=== PATIENT | female | born 1950 | race African-American/Black ===

== ENCOUNTER 2021-07-18 10:34 | Outpatient (CLI) | payer MEDICARE | END 2021-07-18 10:35 | disposition home or self-care (01) | LOC: CSHCP 10:34 | PROVIDERS: ATTEND Internal Medicine Critical Care Medicine | DX: J44.9 Chronic obstructive pulmonary disease, unspecified (principal) | CPT/HCPCS: 94150; 94726; 94729; 94760 ==

== ENCOUNTER 2022-06-01 11:05 | Outpatient (CLI) | payer MEDICARE | END 2022-06-01 11:06 | disposition home or self-care (01) | LOC: CSHLAB 11:05 | PROVIDERS: ATTEND Orthopaedic Surgery | DX: Z01.818 Encounter for other preprocedural examination (principal); M54.50 Low back pain, unspecified; M54.16 Radiculopathy, lumbar region; T84.498S Other mechanical complication of other internal orthopedic devices, implants and grafts, sequela | CPT/HCPCS: 80048; 85027; 85610; 85730; 86850; 86900; 86901; 93005; 93010 ==

== ENCOUNTER 2022-06-06 11:00 | Outpatient (CLI) | payer MEDICARE | END 2022-06-06 11:01 | disposition home or self-care (01) | LOC: CSHRAD 11:00 | PROVIDERS: ATTEND Orthopaedic Surgery | DX: M54.50 Low back pain, unspecified (principal); Z98.890 Other specified postprocedural states; M47.816 Spondylosis without myelopathy or radiculopathy, lumbar region | CPT/HCPCS: 72100 ==

== ENCOUNTER 2022-11-10 08:55 | Emergency (ER) | payer MEDICARE ==
[2022-11-10 10:23] LABS: ALT (SGPT) 22 U/L (8-55); AST (SGOT) 21 U/L (5-34); Albumin 3.8 g/dL (3.4-4.8); Alkaline Phosphatase 137 U/L (40-110); Anion Gap 16 mmol/L (10-20); BUN (Urea Nitrogen) 19 mg/dL (9.8-20.1); Bilirubin, Total 0.4 mg/dL (0.2-1.2); Calc. Creatinine Clearance 0 mL/min (70-130); Calcium 9.7 mg/dL (7.8-10.44); Carbon Dioxide 21 mmol/L (23-31); Chloride 106 mmol/L (98-107); Estimated GFR 47; Globulin 3.4 g/dL (2.4-3.5); Glucose 117 mg/dL (83-110); Potassium 4.2 mmol/L (3.5-5.1); Protein, Total 7.2 g/dL (5.8-8.1); Sodium 139 mmol/L (136-145)
[2022-11-10 10:25] LABS: #Eosinphils 0.2 10x3/uL (0.0-0.5); #Monocytes 0.8 10x3/uL (0.0-1.1); #Neutrophils 3.3 10x3/uL (1.5-8.4); %Basophils 0.5 % (0.0-2.0); %Eosinophils 2.6 % (0.0-6.0); %Lymphocytes 34.2 % (18.0-47.0); %Monocytes 12.2 % (0.0-10.0); %Neutrophils 50.2 % (40.0-75.0); Hemoglobin 11.3 g/dL (12.0-15.5); Mean Corpuscular HGB CONC 30.8 g/dL (32.0-36.0); Mean Corpuscular Volume 71.4 fl (81.6-98.3); Mean Platelet Volume 10.4 fl (7.4-10.4); Platelet Count 200 10x3/uL (150-450); RBC Distribution Width 17.4 % (11.5-14.5); Red Blood Cell (RBC) Count 5.14 10x6/uL (3.90-5.03); White Blood Cell (WBC) Count 6.6 10x3/uL (3.5-10.5)
== END 2022-11-10 12:36 | disposition home or self-care (01) ==
LOC: CSHERS 08:55
DX: R53.81 Other malaise (principal); E78.5 Hyperlipidemia, unspecified; E11.9 Type 2 diabetes mellitus without complications; I10 Essential (primary) hypertension; Z87.891 Personal history of nicotine dependence; Z79.899 Other long term (current) drug therapy
CPT/HCPCS: 36415; 36416; 71045; 80053; 83880; 84484; 85025; 93005; 96360

== ENCOUNTER 2023-04-13 11:11 | Outpatient (CLI) | payer MEDICARE | END 2023-04-13 11:12 | disposition home or self-care (01) | LOC: CSHMAMMO 11:11 | PROVIDERS: ATTEND Internal Medicine Hematology & Oncology | DX: Z13.820 Encounter for screening for osteoporosis (principal); C50.412 Malignant neoplasm of upper-outer quadrant of left female breast; T38.6X5A Adverse effect of antigonadotrophins, antiestrogens, antiandrogens, not elsewhere classified, initial encounter; M85.852 Other specified disorders of bone density and structure, left thigh | CPT/HCPCS: 77080 ==

== ENCOUNTER 2023-09-28 05:39 | Inpatient (IN) | payer MEDICARE ==
[2023-09-28] MEDS ORDERED: PROPOFOL 20 ML ONE ×2 (06:30→08:50)
[2023-09-28] MEDS ORDERED: PROPOFOL 0 ML ONE (06:30)
[2023-09-28] MEDS ORDERED: Dexamethasone 20 MG/5 ML VIAL ONE (06:30)
[2023-09-28] MEDS ORDERED: Ondansetron PF 4 MG/2 ML Vial ONE ×2 (06:30→09:39)
[2023-09-28] MEDS ORDERED: fentaNYL 50 mcg/mL 1 mL Vial ONE ×2 (06:30→08:59)
[2023-09-28] MEDS ORDERED: EPINEPHrine 1 MG/ML VIAL ONE (06:31)
[2023-09-28] MEDS ORDERED: Bupivacaine 0.25% HCL 30 ML VIAL ONE (06:31)
[2023-09-28] MEDS ORDERED: Famotidine/PF 20 mg/2ml Vial ONE (06:42)
[2023-09-28] MEDS ORDERED: Propofol 1,000 MG/100 ML VIAL IV ONE (06:43)
[2023-09-28] MEDS ORDERED: Dexmedetomidine 200 MCG/2 ML VIAL ONE (06:43)
[2023-09-28] MEDS ORDERED: CEFAZOLIN 2 GM VIAL ONE (06:53)
[2023-09-28] MEDS ORDERED: ePHEDrine Sulfate 50 MG/10 ML VIAL ONE (08:09)
[2023-09-28] MEDS ORDERED: Midazolam HCl 2 mg/2 ml Vial ONE (08:18)
[2023-09-28] MEDS ORDERED: Glycopyrrolate 0.2 MG/ML 5 ML SYRINGE ONE (08:23)
[2023-09-28] MEDS ORDERED: PHENYLEPHRINE-NS 100 MCG/ML 10 ML SYRINGE ONE (08:24)
[2023-09-28] MEDS ORDERED: Labetalol HCl 100 MG/20 ML VIAL ONE (09:42)
[2023-09-28] MEDS ORDERED: Acetaminophen 325 MG TAB PO PRN (09:50)
[2023-09-28] MEDS ORDERED: traMADol HCl 50 MG TAB PO PRN (09:50)
[2023-09-28] MEDS ORDERED: Ventolin HFA Inhaler 60 PUFF INHALER INH PRN (09:51)
[2023-09-28] MEDS ORDERED: Ipratropium/Albuterol 3 ML NEB NEB PRN (09:51)
[2023-09-28] MEDS ORDERED: Acetaminophen/Codeine 30-300mg Tablet PO PRN (09:51)
[2023-09-28] MEDS ORDERED: Communication Order-Pharmacy FS SCH (10:00)
[2023-09-28] MEDS ORDERED: Non-Formulary Medication 1 EACH (Semaglutide [Ozempic] 1 MG/0.75 ML Pen.Injctr) SQ SCH (10:00)
[2023-09-28] MEDS: HYDROcodone/Acetaminophen 10/325 mg Tablet PO PRN (12:17)
[2023-09-28 13:29] VITALS: BMI 35.3
[2023-09-28] MEDS: CEFAZOLIN 2 GM in Sodium Chloride 0.9% 100 ML IVPB SCH (13:36)
[2023-09-28] MEDS: Morphine 4 MG/ML VIAL SLOW IVP PRN (13:37)
[2023-09-28] MEDS: Ipratropium/Albuterol 3 ML NEB NEB SCH (15:10)
[2023-09-28] MEDS: Atorvastatin Calcium 20 MG TAB PO SCH (20:41)
[2023-09-28] MEDS: Gabapentin 300 MG CAP PO SCH (20:41)
[2023-09-28] MEDS: Aspirin 81 mg Enteric Coated Tablet PO SCH (20:41)
[2023-09-28] MEDS: Mirtazapine 15 MG TAB PO SCH (20:41)
[2023-09-28] MEDS: Anastrozole 1 MG TAB PO SCH (20:41)
[2023-09-28] MEDS: hydrOXYzine 25 MG TAB PO SCH (20:42)
[2023-09-29] MEDS: Potassium Chloride 20 MEQ TAB PO SCH (09:06)
[2023-09-29] MEDS: Furosemide 40 MG TAB PO SCH (09:07)
[2023-09-29] MEDS: Calcium Carbonate 600 MG + Vit D TAB PO SCH (09:07)
[2023-09-29] MEDS: Lisinopril 10 MG TAB PO SCH (09:07)
[2023-09-29] MEDS: PARoxetine 20 MG TAB PO SCH (09:07)
[2023-10-01] MEDS: TETANUS, DIPHTHERIA TOX,ADULT (TDVAX) 0.5 ML VIAL IM ONE (09:11)
[2023-10-02 08:26] VITALS: BP 133/76; TEMP 98.1
[2023-10-03] MEDS ORDERED: Ergocalciferol 1.25 MG(50,000 UNITS) CAP PO SCH (09:00)
== END 2023-10-02 09:35 | disposition home health service (06) | DRG 460 ==
LOC: CSHSDC 05:39 → CSHTELE 11:56 → OBSVTOIN 09-30 17:54
PROVIDERS: ADMIT Orthopaedic Surgery; ATTEND Orthopaedic Surgery
PROC: 0SG704Z Fusion of Right Sacroiliac Joint with Internal Fixation Device, Open Approach (ICD-10-PCS; principal; 2023-09-28)
DX: M46.1 Sacroiliitis, not elsewhere classified (principal); M53.2X8 Spinal instabilities, sacral and sacrococcygeal region; E11.9 Type 2 diabetes mellitus without complications; I10 Essential (primary) hypertension
CPT/HCPCS: 51798; 72202; 94640; 94760; 96374; 96375; 96376; C1713; G0378; J0171; J0665; J1100; J2250; J2270; J2405; J2704; J3010; J3490; J7620; S0028

== ENCOUNTER 2024-02-15 11:56 | Outpatient (CLI) | payer MEDICARE | END 2024-02-15 11:57 | disposition home or self-care (01) | LOC: CSHLAB 11:56 | PROVIDERS: ATTEND Specialist | DX: Z01.818 Encounter for other preprocedural examination (principal); Z85.3 Personal history of malignant neoplasm of breast; R94.31 Abnormal electrocardiogram [ECG] [EKG] | CPT/HCPCS: 71046; 93005; 93010 ==

== ENCOUNTER 2024-02-19 09:23 | Day surgery (SDC) | payer MEDICARE ==
[2024-02-15 12:27] VITALS: BMI 35.3
[2024-02-19] MEDS ORDERED: Acetaminophen 500 MG TAB ONE (09:51)
[2024-02-19] MEDS ORDERED: Ketorolac Tromethamine 30 MG (1 mL) VIAL ONE (09:51)
[2024-02-19] MEDS ORDERED: fentaNYL 50 mcg/mL 1 mL Vial ONE ×2 (13:23→14:33)
[2024-02-19] MEDS ORDERED: Lidocaine 1% PF 5 ML VIAL ONE (13:23)
[2024-02-19] MEDS ORDERED: Dexamethasone 4 mg/ml Vial ONE (13:23)
[2024-02-19] MEDS ORDERED: PROPOFOL 20 ML ONE ×2 (13:23→13:56)
[2024-02-19] MEDS ORDERED: Ondansetron PF 4 MG/2 ML Vial ONE (13:23)
[2024-02-19] MEDS ORDERED: CEFAZOLIN 2 GM VIAL ONE (13:27)
[2024-02-19] MEDS ORDERED: Bupivacaine/Epinephrine 0.25% 30 ML VIAL ONE (13:27)
[2024-02-19] MEDS ORDERED: PHENYLEPHRINE-NS 100 MCG/ML 10 ML SYRINGE ONE ×2 (14:12→15:41)
[2024-02-19] MEDS ORDERED: Albuterol HFA (OR) 200 PUFF INH ONE ×2 (14:40→14:42)
[2024-02-19] MEDS ORDERED: Albumin 5% 0 ML ONE (14:41)
[2024-02-19] MEDS ORDERED: ePHEDrine Sulfate 50 MG/10 ML VIAL ONE (15:13)
[2024-02-19] MEDS ORDERED: HYDROcodone/Acetaminophen 5/325 mg Tablet ONE (16:32)
== END 2024-02-19 17:20 | disposition home or self-care (01) ==
LOC: CSHSDC 09:23
PROVIDERS: ATTEND Specialist
PROC: 0HTT0ZZ Resection of Right Breast, Open Approach (ICD-10-PCS; principal; 2024-02-19)
PROC: 07T50ZZ Resection of Right Axillary Lymphatic, Open Approach (ICD-10-PCS; 2024-02-19)
DX: C50.812 Malignant neoplasm of overlapping sites of left female breast (principal); Z17.0 Estrogen receptor positive status [ER+]; I10 Essential (primary) hypertension; E78.00 Pure hypercholesterolemia, unspecified; E78.5 Hyperlipidemia, unspecified; I11.9 Hypertensive heart disease without heart failure; E11.9 Type 2 diabetes mellitus without complications; Z90.710 Acquired absence of both cervix and uterus; Z90.49 Acquired absence of other specified parts of digestive tract; Z98.890 Other specified postprocedural states; Z95.0 Presence of cardiac pacemaker; F17.200 Nicotine dependence, unspecified, uncomplicated; Z85.3 Personal history of malignant neoplasm of breast; Z79.899 Other long term (current) drug therapy; Z88.8 Allergy status to other drugs, medicaments and biological substances; Z79.51 Long term (current) use of inhaled steroids; Z88.5 Allergy status to narcotic agent; Z91.040 Latex allergy status
CPT/HCPCS: 14301; 19303; 23071; A6258; J1100; J1885; J2405; J2704; J3010; 88307; P9045

== ENCOUNTER 2024-04-14 11:09 | Outpatient (CLI) | payer MEDICARE | END 2024-04-14 11:10 | disposition home or self-care (01) | LOC: CSHMAMMO 11:09 | PROVIDERS: ATTEND Internal Medicine Hematology & Oncology | DX: M85.831 Other specified disorders of bone density and structure, right forearm (principal) | CPT/HCPCS: 77080 ==